=== PATIENT | female | born 1995 | race Caucasian/White ===

== ENCOUNTER 2017-12-04 17:14 | Emergency (ER) | payer MEDICAID ==
[~2017-12-04] VITALS: Ht 162.6 cm; Wt 62.1 kg
[2017-12-04 17:43] VITALS: BP_SYST 114
[2017-12-04] MEDS ORDERED: LIDOCAINE/EPI 2% 1:100000 20 ML VIAL INJ ONE (18:30)
[2017-12-04] MEDS ORDERED: IBUPROFEN 800 MG TABLET PO ONE (18:30)
[2017-12-04 19:15] VITALS: BP_SYST 110
== END 2017-12-04 19:15 | disposition home or self-care (01) ==
LOC: SED 17:14
DX: L02.411 Cutaneous abscess of right axilla (principal); Z86.14 Personal history of Methicillin resistant Staphylococcus aureus infection; Z88.1 Allergy status to other antibiotic agents; Z91.02 Food additives allergy status
CPT/HCPCS: 99283

== ENCOUNTER 2019-11-05 19:13 | Emergency (ER) | payer MEDICAID ==
[~2019-11-05] VITALS: Ht 172.7 cm; Wt 74.8 kg
[2019-11-05 19:41] VITALS: BP_SYST 116
[2019-11-05] MEDS ORDERED: NACL 0.9% 1,000 ML IV ONE (20:46)
[2019-11-05 21:10] LABS: BASOPHILS # (AUTO) 0.1 K/uL (0.0-0.2); BASOPHILS % (AUTO) 0.5 % (0.0-2.0); EOSINOPHILS % (AUTO) 0.1 % (0.0-4.0); HEMATOCRIT 40.4 % (36-48); HEMOGLOBIN 13.2 g/dL (12.0-16.0); LYMPHOCYTES # (AUTO) 2.6 K/uL (1.0-5.5); MEAN CORPUSCULAR HEMOGLOBIN 30 pg (27-31); MEAN CORPUSCULAR HGB CONC 33 % (32-36); MEAN CORPUSCULAR VOLUME 91 fL (79.0-98.0); MONOCYTES # (AUTO) 0.9 K/uL (0.0-1.0); MONOCYTES % (AUTO) 4.3 % (1.7-9.3); NEUTROPHILS # (AUTO) 18.1 K/uL (1.8-7.7); NEUTROPHILS % (AUTO) 83.1 % (40.0-70.0); PLATELET COUNT (AUTO) 363 K/uL (130-430); RED BLOOD CELL COUNT(AUTO) 4.45 MIL/uL (4.2-6.2); WHITE BLOOD COUNT (AUTO) 21.8 K/uL (4.8-10.8)
[2019-11-05 21:33] LABS: BILIRUBIN,URINE NEGATIVE (NEGATIVE); BLOOD, URINE NEGATIVE (NEGATIVE); GLUCOSE,URINE NEGATIVE (NEGATIVE); KETONES,URINE TRACE (NEGATIVE); LEUKOCYTE ESTERASE ,URINE NEGATIVE (NEGATIVE); NITRITE, URINE NEGATIVE (NEGATIVE); PH,URINE 5.5 (5.0-8.0); PROTEIN URINE 1+ (NEGATIVE); UROBILINOGEN,URINE 0.2 (0.2-1.0)
[2019-11-05 21:39] LABS: CALCIUM 9.6 mg/dL (8.4-11.0); CREATININE 0.78 mg/dL (0.55-1.30); POTASSIUM 4.5 mmol/L (3.5-5.1); PROTHROMBIN TIME 10.1 SECS (9.5-12.5)
[2019-11-05 21:40] LABS: CLARITY/URINE HAZY (CLEAR); COLOR,URINE AMBER (YELLOW)
[2019-11-05 21:41] LABS: ALBUMIN 4.1 g/dL (3.4-4.8); TOTAL BILIRUBIN 0.4 mg/dL (0.0-1.0)
[2019-11-05 22:32] LABS: BACTERIA,URINE FEW /HPF (None Seen); RBC,URINE 0-3 /HPF (0-3); WBC,URINE 0-3 /HPF (0-3)
[2019-11-05 22:33] LABS: MUCUS,URINE 3+ /LPF (None Seen)
[2019-11-06] MEDS ORDERED: KETOROLAC TROMETHAMINE 30 MG VIAL IVP ONE (02:15)
[2019-11-06] MEDS ORDERED: LEVOFLOXACIN 500 MG/D5W 100 ML IV ONE (04:15)
[2019-11-06] MEDS ORDERED: MORPHINE 4 MG/ML INJ. SYRINGE IVP ONE (07:45)
[2019-11-06 08:58] VITALS: BP_SYST 105
== END 2019-11-06 08:58 | disposition short-term general hospital (02) ==
LOC: SED 19:13
DX: N85.8 Other specified noninflammatory disorders of uterus (principal); R19.09 Other intra-abdominal and pelvic swelling, mass and lump; Z88.0 Allergy status to penicillin; Z88.8 Allergy status to other drugs, medicaments and biological substances
CPT/HCPCS: 36415; 73030; 74176; 76830; 76857; 80053; 81000; 81025; 82150; 83690; 84702; 85025; 85610; 96361; 96365; 96375; 99285; J1885; J1956; J7030; J2270